=== PATIENT | male | born 1935 | race Caucasian/White ===

== ENCOUNTER → 2017-03-16 | Outpatient (CLI) | payer MEDICARE, MEDICAID ==
[~2017-03-16] MED LIST: AMLO1CAP6 PO; ASPI-515 PO; CILO100T17 PO; CLOP75TA22 PO; FENO134C PO; FENO160T PO; ISOS30TA19 PO; ISOS30TA8 PO; METO50TA82 PO; PRENATAL PO
== END | disposition home or self-care (01) ==
LOC: CVU 13:02
PROVIDERS: ATTEND Surgery
DX: I74.3 Embolism and thrombosis of arteries of the lower extremities (principal); I73.9 Peripheral vascular disease, unspecified; I10 Essential (primary) hypertension; Z95.1 Presence of aortocoronary bypass graft; Z85.828 Personal history of other malignant neoplasm of skin; Z87.891 Personal history of nicotine dependence; Z95.0 Presence of cardiac pacemaker
CPT/HCPCS: 93922; 93925

== ENCOUNTER → 2017-06-12 | Outpatient (CLI) | payer MEDICARE, MEDICAID ==
[2017-06-12 08:57] LABS: ASPARTATE AMINO TRANSFERASE 22 U/L (15-37); BLOOD UREA NITROGEN 17 mg/dL (7-18)
== END | disposition home or self-care (01) ==
LOC: CVU 08:25
PROVIDERS: ATTEND Internal Medicine Cardiovascular Disease
DX: I65.23 Occlusion and stenosis of bilateral carotid arteries (principal); I73.9 Peripheral vascular disease, unspecified; E78.2 Mixed hyperlipidemia; I10 Essential (primary) hypertension; Z98.890 Other specified postprocedural states
CPT/HCPCS: 36415; 80053; 80061; 93880

== ENCOUNTER → 2017-11-30 | Outpatient (CLI) | payer MEDICARE, MEDICAID ==
[~2017-11-30] MED LIST changes: -CLOP75TA22 PO; +CLOP75TA52 PO; -ISOS30TA19 PO; +ISOS30TA21 PO
== END | disposition home or self-care (01) ==
LOC: CVU 08:29
PROVIDERS: ATTEND Surgery
DX: I70.203 Unspecified atherosclerosis of native arteries of extremities, bilateral legs (principal); E78.5 Hyperlipidemia, unspecified; I25.10 Atherosclerotic heart disease of native coronary artery without angina pectoris; I74.3 Embolism and thrombosis of arteries of the lower extremities; Z85.828 Personal history of other malignant neoplasm of skin; Z95.1 Presence of aortocoronary bypass graft
CPT/HCPCS: 93922; 93925

== ENCOUNTER 2018-08-16 06:31 | Inpatient (IN) | payer MEDICARE, MEDICAID ==
[~2018-08-16] VITALS: Ht 167.6 cm; Wt 86.4 kg
[2018-08-16] MEDS ORDERED: LORazepam 2 MG/ML, 1ML ONE (06:50)
[2018-08-16] MEDS ORDERED: SODIUM CHLORIDE FLUSH 10ML SYR IVF ONE (07:00)
[2018-08-16] MEDS ORDERED: LORazepam 2 MG/ML, 1ML IVPush ONE (07:00)
[2018-08-16 07:03] LABS: BASOPHILS # (AUTO) 0.04 x10^3/uL (0-0.1); BASOPHILS % (AUTO) 0 % (0-1); EOSINOPHILS # (AUTO) 0.39 x10^3/uL (0-0.4); EOSINOPHILS % (AUTO) 4 % (1-7); LYMPHOCYTES # (AUTO) 1.89 x10^3/uL (1-3.4); LYMPHOCYTES % (AUTO) 19 % (22-44); MD NO; MEAN CORPUSCULAR HEMOGLOBIN 32.2 pg (27.5-34.5); MEAN CORPUSCULAR HGB CONC 33.4 g/dL (33.2-36.2); MEAN CORPUSCULAR VOLUME 96.4 fL (81-97); MEAN PLATELET VOLUME 8.7 fL (7.4-10.4); MONOCYTES # (AUTO) 0.74 x10^3/uL (0.2-0.8); MONOCYTES % (AUTO) 8 % (2-9); NEUTROPHILS # (AUTO) 6.76 x10^3/uL (1.8-6.8); NEUTROPHILS % (AUTO) 69 % (42-75); PLATELET COUNT 109 x10^3/uL (130-400); RED BLOOD COUNT 5.26 x10^6/uL (4.38-5.82); RED CELL DISTRIBUTION WIDTH 14.8 % (9.4-14.8)
[2018-08-16 07:14] LABS: ALANINE AMINOTRANSFERASE 22 U/L (12-78); ALBUMIN 3.6 g/dL (3.4-5.0); ANION GAP 10 mmol/L (5-15); CALCIUM 8.5 mg/dL (8.5-10.1); CHLORIDE 111 mmol/L (98-107); CREATININE 1.31 mg/dL (0.7-1.3)
[2018-08-16 07:18] LABS: ALKALINE PHOSPHATASE 183 U/L (45-117); TROPONIN I 0.037 ng/mL (0.000-0.045)
[2018-08-16] MEDS ORDERED: FUROSEMIDE 20 MG/2 ML IV ONE (09:30)
[2018-08-16] MEDS ORDERED: ACETAMINOPHEN 325 MG TABLET PO PRN (10:00)
[2018-08-16] MEDS ORDERED: POLYETHYLENE GLYCOL 17 GM PACKET PO PRN (10:00)
[2018-08-16] MEDS ORDERED: ONDANSETRON ODT 4 MG PO PRN (10:00)
[2018-08-16] MEDS ORDERED: BISACODYL 10 MG SUPP PR PRN (10:00)
[2018-08-16] MEDS ORDERED: LORazepam 2 MG/ML, 1ML IVPush PRN (10:00)
[2018-08-16] MEDS ORDERED: ONDANSETRON 2MG/ML, 2ML IVPush PRN (10:00)
[2018-08-16] MEDS: ENOXAPARIN 40 MG/0.4 ML SQ SCH (11:09)
[2018-08-16 11:36] VITALS: BP 133/56
[2018-08-16] MEDS: CILOSTAZOL 100 MG TABLET PO SCH (20:52)
[2018-08-16] MEDS: FAMOTIDINE 20 MG TABLET PO SCH (20:52)
[2018-08-17 04:40] LABS: O2 FLOW 5 L/min
[2018-08-17 04:54] LABS: ALBUMIN 3.3 g/dL (3.4-5.0); ANION GAP 6 mmol/L (5-15); CALCIUM 8.5 mg/dL (8.5-10.1); CHLORIDE 112 mmol/L (98-107)
[2018-08-17 04:57] LABS: ALANINE AMINOTRANSFERASE 22 U/L (12-78); ALKALINE PHOSPHATASE 152 U/L (45-117); BILIRUBIN,TOTAL 1.2 mg/dL (0.2-1.0); CREATININE 0.98 mg/dL (0.7-1.3); TOTAL PROTEIN 7.2 g/dL (6.4-8.2)
[2018-08-17 05:01] LABS: MEAN CORPUSCULAR HEMOGLOBIN 32.3 pg (27.5-34.5); MEAN CORPUSCULAR HGB CONC 33.7 g/dL (33.2-36.2); MEAN CORPUSCULAR VOLUME 95.9 fL (81-97); RED CELL DISTRIBUTION WIDTH 15.2 % (9.4-14.8)
[2018-08-17 05:32] LABS: BASOPHILS # (AUTO) 0.02 x10^3/uL (0-0.1); BASOPHILS % (AUTO) 0 % (0-1); EOSINOPHILS # (AUTO) 0.21 x10^3/uL (0-0.4); EOSINOPHILS % (AUTO) 3 % (1-7); LYMPHOCYTES # (AUTO) 0.92 x10^3/uL (1-3.4); LYMPHOCYTES % (AUTO) 15 % (22-44); MD SCAN; MEAN PLATELET VOLUME 8.8 fL (7.4-10.4); MONOCYTES % (AUTO) 8 % (2-9); NEUTROPHILS # (AUTO) 4.66 x10^3/uL (1.8-6.8); NEUTROPHILS % (AUTO) 74 % (42-75); PLATELET COUNT 99 x10^3/uL (130-400)
[2018-08-17 05:38] VITALS: BP 140/55
[2018-08-17] MEDS: SENNA/DOCUSATE TABLET PO SCH (07:55)
[2018-08-17] MEDS: ASPIRIN 81 MG TABLET EC PO SCH (07:55)
[2018-08-17] MEDS: FAMOTIDINE 20 MG TABLET PO SCH (07:55)
[2018-08-17] MEDS: CLOPIDOGREL 75 MG TABLET PO SCH (07:55)
[2018-08-17] MEDS: CILOSTAZOL 100 MG TABLET PO SCH ×2 (07:56→08:30)
[2018-08-17] MEDS ORDERED: POTASSIUM CHLORIDE 20 MEQ TAB.ER.PRT PO ONE (09:30)
[2018-08-17] MEDS: FUROSEMIDE 40 MG TABLET PO SCH (09:41)
[2018-08-17] MEDS: ENOXAPARIN 40 MG/0.4 ML SQ SCH (09:41)
[2018-08-17 14:30] VITALS: BP 112/59
[2018-08-17 20:23] VITALS: BP 130/61
[2018-08-18 01:21] VITALS: BP 132/72
[2018-08-18] MEDS ORDERED: FUROSEMIDE 20 MG/2 ML ONE (01:42)
[2018-08-18] MEDS ORDERED: FUROSEMIDE 20 MG/2 ML IV ONE (02:00)
[2018-08-18 07:35] VITALS: BP 136/70
[2018-08-18] MEDS: ASPIRIN 81 MG TABLET EC PO SCH (08:23)
[2018-08-18] MEDS: CLOPIDOGREL 75 MG TABLET PO SCH (08:23)
[2018-08-18] MEDS: FUROSEMIDE 40 MG TABLET PO SCH (08:23)
[2018-08-18] MEDS: METOPROLOL TARTRATE 50 MG TABLET PO SCH ×2 (08:24→20:50)
[2018-08-18] MEDS: SENNA/DOCUSATE TABLET PO SCH (08:24)
[2018-08-18] MEDS: ENOXAPARIN 40 MG/0.4 ML SQ SCH (08:26)
[2018-08-18] MEDS ORDERED: DIGOXIN 0.125 MG TABLET PO SCH (09:00)
[2018-08-18 10:18] LABS: CLOSTRIDIUM DIFFICILE ANTIGEN NEGATIVE; CLOSTRIDIUM DIFFICILE TOXIN NEGATIVE (Negative)
[2018-08-18 13:52] VITALS: BP 145/66
[2018-08-18 20:14] VITALS: BP 177/82
[2018-08-19 04:50] VITALS: BP 145/68
[2018-08-19 08:31] VITALS: BP 184/74
[2018-08-19] MEDS: METOPROLOL TARTRATE 50 MG TABLET PO SCH ×2 (08:45→19:31)
[2018-08-19] MEDS: CLOPIDOGREL 75 MG TABLET PO SCH (08:46)
[2018-08-19] MEDS: ASPIRIN 81 MG TABLET EC PO SCH (08:46)
[2018-08-19] MEDS: FUROSEMIDE 40 MG TABLET PO SCH (08:47)
[2018-08-19] MEDS: SENNA/DOCUSATE TABLET PO SCH (09:00)
[2018-08-19] MEDS ORDERED: AMLODIPINE 5 MG TABLET PO SCH (09:00)
[2018-08-19] MEDS: BENAZEPRIL 20 MG TABLET PO SCH (10:38)
[2018-08-19 12:17] VITALS: BP 143/65
[2018-08-19 19:28] VITALS: BP 177/77
[2018-08-20 02:42] VITALS: BP 141/69
[2018-08-20 06:49] VITALS: BP 173/68
[2018-08-20] MEDS ORDERED: ENOXAPARIN 40 MG/0.4 ML SQ SCH (07:00)
[2018-08-20] MEDS: SENNA/DOCUSATE TABLET PO SCH (09:00)
[2018-08-20] MEDS ORDERED: AMLODIPINE 10 MG TAB PO SCH (09:00)
[2018-08-20] MEDS: CLOPIDOGREL 75 MG TABLET PO SCH (10:29)
[2018-08-20] MEDS: METOPROLOL TARTRATE 50 MG TABLET PO SCH (10:29)
[2018-08-20] MEDS: FUROSEMIDE 40 MG TABLET PO SCH (10:29)
[2018-08-20] MEDS: ASPIRIN 81 MG TABLET EC PO SCH (10:30)
[2018-08-20] MEDS: BENAZEPRIL 20 MG TABLET PO SCH (10:30)
[2018-08-20 12:16] VITALS: BP 152/68
[2018-08-20] MEDS ORDERED: FURO40TA6 PO (14:41)
[2018-08-20] MEDS ORDERED: POTA20TA6 PO (14:41)
[2018-08-20] MEDS ORDERED: AMLO10TA6 PO (14:41)
== END 2018-08-20 17:00 | disposition hospice, home (50) | DRG 291 ==
LOC: ED 07:07 → EDIP 07:44 → CCU 08:52 → 5SO 08-17 14:30 → 3NE 08-19 11:05
PROVIDERS: ADMIT Internal Medicine; ATTEND Internal Medicine
PROC: 5A09357 Assistance with Respiratory Ventilation, Less than 24 Consecutive Hours, Continuous Positive Airway Pressure (ICD-10-PCS; principal; 2018-08-16)
DX: I13.0 Hypertensive heart and chronic kidney disease with heart failure and stage 1 through stage 4 chronic kidney disease, or unspecified chronic kidney disease (principal); N17.0 Acute kidney failure with tubular necrosis; J96.21 Acute and chronic respiratory failure with hypoxia; I50.43 Acute on chronic combined systolic (congestive) and diastolic (congestive) heart failure; D69.6 Thrombocytopenia, unspecified; E78.5 Hyperlipidemia, unspecified; F10.20 Alcohol dependence, uncomplicated; Y90.9 Presence of alcohol in blood, level not specified; I25.10 Atherosclerotic heart disease of native coronary artery without angina pectoris; I35.1 Nonrheumatic aortic (valve) insufficiency; I35.2 Nonrheumatic aortic (valve) stenosis with insufficiency; I65.21 Occlusion and stenosis of right carotid artery; I73.9 Peripheral vascular disease, unspecified; J44.9 Chronic obstructive pulmonary disease, unspecified; K70.30 Alcoholic cirrhosis of liver without ascites; M06.9 Rheumatoid arthritis, unspecified; M94.0 Chondrocostal junction syndrome [Tietze]; N18.9 Chronic kidney disease, unspecified; Z66 Do not resuscitate; Z82.49 Family history of ischemic heart disease and other diseases of the circulatory system; Z87.891 Personal history of nicotine dependence; Z95.0 Presence of cardiac pacemaker; Z95.1 Presence of aortocoronary bypass graft; Z79.82 Long term (current) use of aspirin; Z79.899 Other long term (current) drug therapy
CPT/HCPCS: 36415; 36600; 71045; 80053; 82803; 83605; 83880; 84484; 85025; 85379; 87081; 87324; 93005; 93306; 94660; 96372; 96374; 96375; 99291; G0378; J1650; J1940; J2060